=== PATIENT | male | born 1960 | race Hispanic/Latino ===

== ENCOUNTER 2017-05-19 07:42 | Day surgery (SDC) | payer OTHER ==
[2017-05-18 13:24] VITALS: BMI 25.8
[2017-05-19] MEDS ORDERED: Lactated Ringer's 500 ML IV SCH (10:15)
[2017-05-19] MEDS ORDERED: Propofol 10 mg/ml Inj (20 ML) ONE ×2 (10:40→10:58)
[2017-05-19] MEDS ORDERED: Midazolam 2 MG/2 ML VIAL ONE (10:40)
[2017-05-19] MEDS ORDERED: Lactated Ringer's 1,000 ML IV ONE (10:41)
[2017-05-19 10:57] VITALS: O2SAT 100
[2017-05-19 11:48] VITALS: TEMP 97.4
[2017-05-19 13:06] VITALS: BP 139/83; PULSE 74; RESP 15
== END 2017-05-19 12:50 | disposition home or self-care (01) ==
LOC: C.ENDO 07:42
PROVIDERS: ATTEND Internal Medicine Gastroenterology
DX: Z12.11 Encounter for screening for malignant neoplasm of colon (principal); K21.0 Gastro-esophageal reflux disease with esophagitis; K64.1 Second degree hemorrhoids; K57.30 Diverticulosis of large intestine without perforation or abscess without bleeding; R13.10 Dysphagia, unspecified; K29.70 Gastritis, unspecified, without bleeding; K22.2 Esophageal obstruction
CPT/HCPCS: 43239; 45378; 88305; 88312; 88313; 88342; J2250; J2704; J7120